=== PATIENT | male | born 1975 ===

== ENCOUNTER 2020-03-01 17:48 | Emergency (ER) | payer MEDICARE ==
[2020-03-01 18:07] VITALS: BP 148/90
== END 2020-03-01 19:40 | disposition left against medical advice (07) ==
LOC: ED 17:48
DX: G40.909 Epilepsy, unspecified, not intractable, without status epilepticus (principal); Z53.21 Procedure and treatment not carried out due to patient leaving prior to being seen by health care provider

== ENCOUNTER 2020-11-22 13:05 | Emergency (ER) | payer MEDICARE ==
[2020-11-22 13:23] VITALS: BP 148/96
[2020-11-22] MEDS ORDERED: levETIRAcetam 500 MG TAB PO ONE (13:54)
--- NOTE | 2020-11-22 13:55 | Emergency Department Report ---
ED General Adult HPI - General Chief complaint: Weakness Stated complaint: WEAKNESS/LETHARGY Time Seen by Provider: 11/22/20 13:53 Source: patient Mode of arrival: Ambulatory Limitations: No Limitations - History of Present Illness Initial comments: 45 YO COMES TO ER VIA EMS FROM HIS DAY PROGRAM WHERE THERE WAS REPORT THAT HE MAY HAVE HAD A SEIZURE. HE HAS SZ DISORDER AND IS TAKING MEDS. I'VE CALLED YARD CALLER AND HE VALIDATED PT IS TAKING HIS MEDS. NO REPORT FROM EMS WAS COMMUNICATED TO TRIAGE WHERE PT PRESENTED TO. TRIP SHEET NOT AVAILABLE AT THIS TIME. PER RN PT CAME FROM MAIN ED TO TRIAGE PT A/O. JORGENSEN. IS COOPERATIVE AND ASKING TO BUY A SODA. NO HI NO SI -: Sudden Improves with: none Worsens with: none Associated Symptoms: denies other symptoms, seizure. denies: confusion, chest pain, cough, diaphoresis, fever/chills, headaches, loss of appetite, malaise, nausea/vomiting, rash, shortness of breath Treatments Prior to Arrival: none - Related Data Allergies Allergy/AdvReac Type Severity Reaction Status Date / Time No Known Allergies Allergy Unverified 03/01/20 18:04 ED Review of Systems ROS: Stated complaint: WEAKNESS/LETHARGY Other details as noted in HPI Comment: All other systems reviewed and negative ED Past Medical Hx - Past Medical History Previous Medical History?: Yes Hx Diabetes: Yes Hx Seizures: Yes - Surgical History Past Surgical History?: Yes - Family History Family history: no significant - Social History Smoking Status: Current Every Day Smoker Substance Use Type: None ED Physical Exam - General Limitations: No Limitations General appearance: alert, in no apparent distress - Head Head exam: Present: atraumatic, normocephalic - Eye Eye exam: Present: normal appearance - ENT ENT exam: Present: mucous membranes moist - Neck Neck exam: Present: normal inspection - Respiratory Respiratory exam: Present: normal lung sounds bilaterally. Absent: respiratory distress - Cardiovascular Cardiovascular Exam: Present: regular rate, normal rhythm. Absent: systolic murmur, diastolic murmur, rubs, gallop - GI/Abdominal GI/Abdominal exam: Present: soft, normal bowel sounds - Rectal Rectal exam: Present: deferred - Extremities Exam Extremities exam: Present: normal inspection - Back Exam Back exam: Present: normal inspection - Neurological Exam Neurological exam: Present: alert, oriented X3 - Psychiatric Psychiatric exam: Present: normal affect, normal mood - Skin Skin exam: Present: warm, dry, intact, normal color. Absent: rash ED Course Vital Signs 11/22/20 13:22 Pulse Rate 102 H Respiratory 16 Rate Blood Pressure 148/96 [Left] O2 Sat by Pulse 98 Oximetry - Reevaluation(s) Reevaluation #1: 11/22/20 15:43 REMAINS IN NAD TAKING PO ED Medical Decision Making - Lab Data Result diagrams: 11/22/20 14:48 - Medical Decision Making Vital Signs 11/22/20 13:22 Pulse Rate 102 H Respiratory 16 Rate Blood Pressure 148/96 [Left] O2 Sat by Pulse 98 Oximetry Labs 11/22/20 14:48 WBC 7.0 RBC 4.05 Hgb 13.8 Hct 40.2 MCV 99 H MCH 34 H MCHC 34 RDW 12.9 L Plt Count 347 Lymph % (Auto) 40.7 H Swisher % (Auto) 7.2 Eos % (Auto) 1.3 Baso % (Auto) 0.8 Lymph # (Auto) 2.9 Swisher # (Auto) 0.5 Eos # (Auto) 0.1 Baso # (Auto) 0.1 Seg Neutrophils % 50.0 Seg Neutrophils # 3.5 LABS NOTED KEPPRA X 1 PO GIVEN MATTHEW CALLED [facility]- PT TO BE D/C HOME WITH EXTERMINATOR HELPER TERMITE. HE WILL FOLLOW UP WITH PCP FOR ONGOING MONITORING. PT HAS HAD NO SZ AND HAS BEEN COOPERATIVE, IN NAD, AND NEURO INTACT WHILE IN ER. HE IS TALKING WITH OTHER PTS AND TAKING PO WITH NO DIFFICULTY - Differential Diagnosis ?sz today Critical care attestation.: If time is entered above; I have spent that time in minutes in the direct care of this critically ill patient, excluding procedure time. ED Disposition Clinical Impression: Seizure disorder Disposition: 01 HOME / SELF CARE / HOMELESS Is pt being admited?: No Does the pt Need Aspirin: No Condition: Stable Instructions: Seizure, Adult Additional Instructions: CONTINUE HOME MEDS FOLLOW UP WITH PCP IN 24 HOURS FOR RECHECK AND EVALUATION OF YOUR MEDS Referrals: PRIMARY CARE, [Primary Care Provider] - 3-5 Days IMANI MOON MD [Staff Physician] - 3-5 Days Time of Disposition: 15:13
[2020-11-22 15:17] LABS: Basophils # (Auto) 0.1 K/mm3 (0.0-0.1); Basophils % (Auto) 0.8 % (0.0-1.8); Eosinophils # (Auto) 0.1 K/mm3 (0.0-0.4); Eosinophils % (Auto) 1.3 % (0.0-4.3); Hematocrit 40.2 % (35.5-45.6); Hemoglobin 13.8 gm/dl (11.8-15.2); Lymphocytes # (Auto) 2.9 K/mm3 (1.2-5.4); Lymphocytes % (Auto) 40.7 % (13.4-35.0); Mean Corpuscular HGB Conc 34 % (32-34); Mean Corpuscular Volume 99 fl (84-94); Monocytes # (Auto) 0.5 K/mm3 (0.0-0.8); Monocytes % (Auto) 7.2 % (0.0-7.3); Platelet Count 347 K/mm3 (140-440); Red Blood Count 4.05 M/mm3 (3.65-5.03); Red Cell Distribution Width 12.9 % (13.2-15.2)
[2020-11-22 16:29] LABS: Blood Urea Nitrogen 9 mg/dL (9-20); Calcium 9.5 mg/dL (8.4-10.2); Hemolysis Index 20
[2020-11-22 16:55] LABS: BUN/Creatinine Ratio 15
== END 2020-11-22 15:55 | disposition home or self-care (01) ==
LOC: ED 13:05
DX: G40.909 Epilepsy, unspecified, not intractable, without status epilepticus (principal); E11.8 Type 2 diabetes mellitus with unspecified complications; F17.200 Nicotine dependence, unspecified, uncomplicated
CPT/HCPCS: 36415; 80048; 82550; 85025; 99283

== ENCOUNTER 2021-02-22 11:56 | Emergency (ER) | payer MEDICARE ==
[2021-02-22] MEDS ORDERED: SODIUM CHLORIDE 0.9% 1000 ML 1,000 ML IV ONE (12:06)
[2021-02-22 13:20] LABS: Basophils % (Auto) 0.1 % (0.0-1.8); Hematocrit 41.3 % (35.5-45.6); Hemoglobin 13.9 gm/dl (11.8-15.2); Lymphocytes % (Auto) 24.5 % (13.4-35.0); Mean Corpuscular HGB Conc 34 % (32-34); Mean Corpuscular Volume 98 fl (84-94); Monocytes # (Auto) 0.6 K/mm3 (0.0-0.8); Monocytes % (Auto) 6.9 % (0.0-7.3); Platelet Count 279 K/mm3 (140-440); Red Cell Distribution Width 13.4 % (13.2-15.2)
[2021-02-22 13:33] LABS: Bilirubin,Urine NEG (Negative); Blood,Urine NEG (Negative); Color,Urine Straw (Yellow); Protein,Urine <15 mg/dL mg/dL (Negative); RBC,Urine < 1.0 /HPF (0.0-6.0); Urobilinogen,Urine < 2.0 mg/dL (<2.0)
[2021-02-22 13:40] LABS: WBC,Urine < 1.0 /HPF (0.0-6.0)
[2021-02-22 13:57] LABS: Amphetamine Screen,Urine Negative; Benzodiazepines Screen,Urine Negative; Cannabinoid Screen,Urine Negative; Cocaine Screen,Urine Negative; Methadone Screen,Urine Negative; Opiate Screen,Urine Negative
[2021-02-22 14:02] LABS: Alanine Aminotransferase 22 units/L (7-56); Albumin 4.8 g/dL (3.9-5); Blood Urea Nitrogen 8 mg/dL (9-20); Calcium 9.9 mg/dL (8.4-10.2); Hemolysis Index 18
[2021-02-22 14:03] LABS: BUN/Creatinine Ratio 11
--- NOTE | 2021-02-22 14:48 | Emergency Department Report ---
ED Seizure HPI - General Chief Complaint: Seizure Stated Complaint: SEIZURE Time Seen by Provider: 02/22/21 11:58 Source: patient, EMS Mode of arrival: Stretcher Limitations: No Limitations - History of Present Illness Initial Comments: pt has histoyr of seizure, didn;t have one but felt he will get one, takes his keppra and depaoke and has been compliant MD Complaint: possible seizure -: hour(s) Witnessed:: No Trauma: No Seizure History: known seizure disorder Associated Symptoms: denies other symptoms - Related Data Allergies Allergy/AdvReac Type Severity Reaction Status Date / Time No Known Allergies Allergy Unverified 03/01/20 18:04 ED Review of Systems ROS: Stated complaint: SEIZURE Other details as noted in HPI Constitutional: denies: chills, fever Eyes: denies: eye pain, eye discharge, vision change ENT: denies: ear pain, throat pain Respiratory: denies: cough, shortness of breath, wheezing Cardiovascular: denies: chest pain, palpitations Endocrine: no symptoms reported Gastrointestinal: denies: abdominal pain, nausea, diarrhea Genitourinary: denies: urgency, dysuria Musculoskeletal: denies: back pain, joint swelling, arthralgia Skin: denies: rash, lesions Neurological: denies: headache, weakness, paresthesias Psychiatric: denies: anxiety, depression Hematological/Lymphatic: denies: easy bleeding, easy bruising ED Past Medical Hx - Past Medical History Previous Medical History?: Yes Hx Diabetes: Yes Hx Seizures: Yes - Social History Smoking Status: Current Every Day Smoker Substance Use Type: None ED Physical Exam - General Limitations: No Limitations General appearance: alert, in no apparent distress - Head Head exam: Present: atraumatic, normocephalic - Eye Eye exam: Present: normal appearance - ENT ENT exam: Present: mucous membranes moist - Neck Neck exam: Present: normal inspection - Respiratory Respiratory exam: Present: normal lung sounds bilaterally. Absent: respiratory distress - Cardiovascular Cardiovascular Exam: Present: regular rate, normal rhythm. Absent: systolic murmur, diastolic murmur, rubs, gallop - GI/Abdominal GI/Abdominal exam: Present: soft, normal bowel sounds - Rectal Rectal exam: Present: deferred - Extremities Exam Extremities exam: Present: normal inspection - Back Exam Back exam: Present: normal inspection - Neurological Exam Neurological exam: Present: alert, oriented X3 - Psychiatric Psychiatric exam: Present: normal affect, normal mood - Skin Skin exam: Present: warm, dry, intact, normal color. Absent: rash ED Course Vital Signs 02/22/21 02/22/21 02/22/21 11:57 12:49 12:50 Temperature 98.1 F Pulse Rate 80 94 H Respiratory 18 22 Rate Blood Pressure 157/87 123/74 [Left] O2 Sat by Pulse 99 95 95 Oximetry - Reevaluation(s) Reevaluation #1: 02/22/21 14:47 vss , no seizure, work up negatie pt will take his daily seizure med ED Medical Decision Making - Lab Data Result diagrams: 02/22/21 12:25 02/22/21 12:25 Critical care attestation.: If time is entered above; I have spent that time in minutes in the direct care of this critically ill patient, excluding procedure time. ED Disposition Clinical Impression: Seizure disorder Disposition: 01 HOME / SELF CARE / HOMELESS Is pt being admited?: No Does the pt Need Aspirin: No Condition: Stable Instructions: Seizure, Adult
[2021-02-22 14:53] VITALS: BP 188/95
== END 2021-02-22 14:58 | disposition home or self-care (01) ==
LOC: ED 11:56
DX: G40.909 Epilepsy, unspecified, not intractable, without status epilepticus (principal); E11.9 Type 2 diabetes mellitus without complications; F17.200 Nicotine dependence, unspecified, uncomplicated
CPT/HCPCS: 36415; 80053; 80307; 81001; 85025; 96360; 99284; J7030; 80320; Q0162; G0480